=== PATIENT | female | born 1995 | race Caucasian/White ===

== ENCOUNTER 2018-02-26 14:10 | Emergency (ER) | payer OTHER ==
[~2018-02-26] VITALS: Ht 157.5 cm; Wt 69.0 kg
[2018-02-26 14:13] VITALS: BP 154/89
[2018-02-26] MEDS ORDERED: bacitracin 15gm ointment TP ONE (14:20)
[2018-02-26] MEDS ORDERED: LIDOcaine 1.5% w/epinephrine 1:200,000 5ml ampul IJ ONE (14:20)
[2018-02-26] MEDS ORDERED: LIDOcaine 1% w/epiNEPHrine 1:200,000 30ml vial IJ ONE (14:25)
[2018-02-26] MEDS ORDERED: CEPH-571 PO (14:42)
== END 2018-02-26 14:57 | disposition home or self-care (01) ==
LOC: ER 14:10
DX: S61.412A Laceration without foreign body of left hand, initial encounter (principal); Z79.2 Long term (current) use of antibiotics; W26.8XXA Contact with other sharp object(s), not elsewhere classified, initial encounter; Y93.89 Activity, other specified; Y92.89 Other specified places as the place of occurrence of the external cause; Y99.8 Other external cause status
CPT/HCPCS: 12002; 99283; J3490

== ENCOUNTER 2020-02-12 11:08 | Day surgery (SDC) | payer BC, MEDICAID ==
[2020-02-06 10:29] LABS: BASOPHILS % (AUTO) 0.8 % (0-1); EOSINOPHILS # (AUTO) 0.1 X10'3 (0-0.9); EOSINOPHILS % (AUTO) 1.9 % (0-6); LYMPHOCYTES # (AUTO) 1.8 X10'3 (1.1-4.8); LYMPHOCYTES % (AUTO) 32.1 % (21-51); MEAN CORPUSCULAR HEMOGLOBIN 29.2 PG (27.0-31.0); MEAN CORPUSCULAR HGB CONC 33.7 g/dL (33.0-36.5); MEAN CORPUSCULAR VOLUME 86.5 FL (78-98); MEAN PLATELET VOLUME 9.4 FL (7.4-10.4); MONOCYTES # (AUTO) 0.4 X10'3 (0-0.9); MONOCYTES % (AUTO) 6.8 % (2-12); NEUTROPHILS # (AUTO) 3.3 X10'3 (1.8-7.7); NEUTROPHILS % (AUTO) 58.4 % (42-75); PRE OP HEMOGLOBIN 14.2 g/dL (12.0-16.0); PRE OP PLATELET COUNT 272 X10'3 (140-440); RED BLOOD COUNT 4.85 X10'6 (4.20-5.60); RED CELL DISTRIBUTION WIDTH 12.5 % (11.5-14.5)
[2020-02-06 10:35] LABS: CLARITY,URINE SLIGHTLY CLOUDY (Clear); COLOR,URINE STRAW (Yellow); GLUCOSE, URINE NEGATIVE (Neg); KETONES,URINE NEGATIVE (Neg); LEUKOCYTE ESTERASE ,URINE NEGATIVE (Neg); NITRITES, URINE NEGATIVE (Neg); OCCULT BLOOD,URINE NEGATIVE (Neg); PROTEIN,URINE NEGATIVE (Neg); UROBILINOGEN,URINE 0.2 E.U/dL (0.2-1.0)
[2020-02-06 10:37] LABS: UA COLLECTION TYPE NON-SPECIFIED
[2020-02-06 10:49] LABS: ALBUMIN/GLOBULIN RATIO 1.1 (1.1-1.5); ALKALINE PHOSPHATASE 61 IU/L (46-116); BLOOD UREA NITROGEN 11 MG/DL (7-18); BUN/CREATININE RATIO 15.1 (6.6-38.0); CALCIUM 8.8 MG/DL (8.5-10.1); CHLORIDE 106 MMOL/L (99-107); CREATININE 0.73 MG/DL (0.40-0.90); PRE OP ALT 25 U/L (30-65); PRE OP ANION GAP 5 (8-16); PRE OP AST 16 U/L (10-37); PRE OP BILIRUB, TOTAL 0.4 MG/DL (0.0-1.0); PRE OP GLUCOSE 82 MG/DL (70-104); PRE OP POTASSIUM 3.9 MMOL/L (3.4-5.1); PRE OP SODIUM 140 MMOL/L (135-145); TOTAL CARBON DIOXIDE 29.5 MMOL/L (24-32); TOTAL PROTEIN 7.7 G/DL (6.4-8.2); eGFR > 90 ML/MIN
[2020-02-06 10:57] LABS: SQUAMOUS EPITHELIAL CELL,UR FEW /LPF (FEW)
[2020-02-06 10:58] LABS: BACTERIA,URINE FEW /HPF (Neg); RBC,URINE 0-2 /HPF (0-2); TRANSITIONAL EPI CELLS,URINE FEW /HPF; WBC,URINE 0-4 /HPF (0-4)
[2020-02-06 11:01] LABS: HCG SERUM QL NEGATIVE
[~2020-02-12] VITALS: Ht 157.5 cm; Wt 67.6 kg
[2020-02-12] VITALS (8 sets, daily range): BP systolic 103–123; BP diastolic 59–82
[~2020-02-12 11:08] MED LIST: NO HOME MEDS; ceFOXitin sod/dextrose 2g/50ml 50 ML IV ONE; famotidine 10mg tablet PO ONE; ringers solution, lacted 1,000 ML IV SCH
[2020-02-12] MEDS ORDERED: dextrose 5%-lactated ringers 1,000 ML IV SCH (13:10)
[2020-02-12] MEDS ORDERED: ringers solution, lacted 1,000 ML IV SCH (15:10)
[2020-02-12] MEDS ORDERED: ondansetron/PF 4mg/2ml inj IV PRN (15:10)
[2020-02-12] MEDS ORDERED: meperidine/PF 25mg/ml syringe IV PRN ×3 (15:10)
[2020-02-12] MEDS ORDERED: morphine 2 MG/ML inj. syringe IV PRN (15:10)
[2020-02-12] MEDS ORDERED: proCHLORperazine 10 MG/2 ml inj IV PRN (15:10)
[2020-02-12] MEDS ORDERED: morphine 4 MG/ML inj SYRINge IV PRN (15:10)
[2020-02-12] MEDS ORDERED: sevoflurane 250ml liquid IH ONE (17:02)
[2020-02-12] MEDS ORDERED: dexamethasone sod phosphate 10mg/ml inj ONE (17:02)
[2020-02-12] MEDS ORDERED: midazolam 2 mg/2 ml injection ONE (17:03)
[2020-02-12] MEDS ORDERED: fentaNYL/PF 50MCG/1 ML 2ML syringe ONE (17:03)
[2020-02-12] MEDS ORDERED: LIDOcaine 2% (20mg/ml) 5ml vial ONE (17:19)
[2020-02-12] MEDS ORDERED: propofol inj 20 ML IV ONE (17:19)
[2020-02-12] MEDS ORDERED: ondansetron/PF 4mg/2ml inj ONE (17:20)
[2020-02-12] MEDS ORDERED: ketorolac trometh. 30mg/ml inj. ONE (17:33)
--- NOTE | 2020-02-12 17:48 | NUR ---
Received from OR via , accompanied by Anesthesiologist DR ANGULO and report given by Anesthesiolgist. AWAKENS TO VOICE. VITALS STABLE. SHANNON PAD DI PETER PAIN.
--- NOTE | 2020-02-12 18:58 | NUR ---
AWAKE AND ORIENTED. VITALS STABLE. SHANNON PAD DI. STATES ONLY MIN PAIN. HOME WITH A FRIEND AT THIS TIME.
== END 2020-02-12 18:58 | disposition home or self-care (01) ==
LOC: PAS 11:08
PROVIDERS: ATTEND Obstetrics & Gynecology Obstetrics
DX: N85.8 Other specified noninflammatory disorders of uterus (principal); N84.0 Polyp of corpus uteri; Z98.890 Other specified postprocedural states; Z79.899 Other long term (current) drug therapy; Z20.828 Contact with and (suspected) exposure to other viral communicable diseases
CPT/HCPCS: 36415; 58558; 80053; 81001; 82948; 84703; 85025; 86885; 86900; 86901; 87635; J0694; J1100; J1885; J2001; J2175; J2250; J2405; J2704; J3010; J7030; J7121; A4355; A4618; A7000; J7120

== ENCOUNTER 2020-09-05 09:04 | Emergency (ER) | payer MEDICAID ==
[~2020-09-05] VITALS: Ht 157.5 cm; Wt 71.8 kg
[~2020-09-05 09:04] MED LIST changes: -ceFOXitin sod/dextrose 2g/50ml 50 ML IV ONE; -famotidine 10mg tablet PO ONE; -ringers solution, lacted 1,000 ML IV SCH
[2020-09-05 09:19] VITALS: BP 112/82
[2020-09-05 09:58] LABS: CLARITY,URINE SLIGHTLY CLOUDY (Clear); COLOR,URINE YELLOW (Yellow); GLUCOSE, URINE NEGATIVE (Neg); KETONES,URINE NEGATIVE (Neg); LEUKOCYTE ESTERASE ,URINE SMALL (Neg); NITRITES, URINE NEGATIVE (Neg); OCCULT BLOOD,URINE TRACE-INTACT (Neg); PH,URINE 6.5 (4.8-8.0); PROTEIN,URINE NEGATIVE (Neg); UA COLLECTION TYPE CLN CATCH MIDSTREAM; UROBILINOGEN,URINE 0.2 E.U/dL (0.2-1.0)
[2020-09-05 09:59] LABS: URINE HCG POSITIVE (NEG)
[2020-09-05 10:02] LABS: BASOPHILS % (AUTO) 0.3 % (0-1); EOSINOPHILS # (AUTO) 0.1 X10'3 (0-0.9); EOSINOPHILS % (AUTO) 0.8 % (0-6); HEMATOCRIT 38.3 % (35.0-45.0); HEMOGLOBIN 13.1 g/dl (12.0-16.0); LYMPHOCYTES # (AUTO) 1.4 X10'3 (1.1-4.8); LYMPHOCYTES % (AUTO) 20.4 % (21-51); MEAN CORPUSCULAR HEMOGLOBIN 29.6 PG (27.0-31.0); MEAN CORPUSCULAR HGB CONC 34.2 g/dL (33.0-36.5); MEAN CORPUSCULAR VOLUME 86.6 FL (78-98); MEAN PLATELET VOLUME 8.9 FL (7.4-10.4); MONOCYTES # (AUTO) 0.5 X10'3 (0-0.9); MONOCYTES % (AUTO) 6.9 % (2-12); NEUTROPHILS % (AUTO) 71.6 % (42-75); PLATELET COUNT 230 X10'3 (140-440); RED BLOOD COUNT 4.42 X10'6 (4.20-5.60); RED CELL DISTRIBUTION WIDTH 12.6 % (11.5-14.5)
[2020-09-05 10:08] LABS: MUCUS STRANDS FEW /LPF (Neg); SQUAMOUS EPITHELIAL CELL,UR MODERATE /LPF (FEW)
[2020-09-05 10:10] LABS: ALANINE AMINOTRANSFERASE 22 U/L (12-78); ALBUMIN 3.4 G/DL (3.4-5.0); ALBUMIN/GLOBULIN RATIO 0.9 (1.1-1.5); ALKALINE PHOSPHATASE 53 IU/L (46-116); ANION GAP 9 (8-16); ASPARTATE AMINO TRANSFERASE 18 U/L (10-37); BILIRUBIN,TOTAL 0.3 MG/DL (0.1-1.0); BLOOD UREA NITROGEN 10 MG/DL (7-18); BUN/CREATININE RATIO 17.5 (6.6-38.0); CALCIUM 8.8 MG/DL (8.5-10.1); CHLORIDE 104 MMOL/L (99-107); CREATININE 0.57 MG/DL (0.40-0.90); GLUCOSE 86 MG/DL (70-104); POTASSIUM 4.3 MMOL/L (3.5-5.1); SODIUM 137 MMOL/L (135-145); TOTAL CARBON DIOXIDE 24.2 MMOL/L (24-32); TOTAL PROTEIN 7.3 G/DL (6.4-8.2); eGFR > 90 ML/MIN
[2020-09-05 10:17] LABS: RBC,URINE 0-2 /HPF (0-2); STARCH,URINE MODERATE /HPF (NEGATIVE); WBC,URINE 0-4 /HPF (0-4)
[2020-09-05 10:18] LABS: BACTERIA,URINE 1+ /HPF (Neg)
[2020-09-05 10:37] LABS: BETA HCG,QUANTITATIVE 93904 mIU/ml
== END 2020-09-05 12:17 | disposition home or self-care (01) ==
LOC: ER 09:04
DX: O20.0 Threatened abortion (principal); Z3A.10 10 weeks gestation of pregnancy
CPT/HCPCS: 36415; 76801; 80053; 81001; 81025; 84702; 85025; 87088; 93976; 99284

== ENCOUNTER 2020-10-31 15:35 | Emergency (ER) | payer MEDICAID ==
[~2020-10-31] VITALS: Ht 157.5 cm; Wt 73.2 kg
[2020-10-31 15:47] VITALS: BP 123/80
--- NOTE | 2020-10-31 16:37 | NUR ---
DR CROOK AND RUFUS VALENTE AT BEDSIDE, DOING U/S EXAM. THEY REPORT FHR OF 128, NORMAL MOVEMENT. PT DENIES VAG BLEEDING
== END 2020-10-31 17:29 | disposition home or self-care (01) ==
LOC: ER 15:36
DX: O26.892 Other specified pregnancy related conditions, second trimester (principal); R10.84 Generalized abdominal pain; Z3A.18 18 weeks gestation of pregnancy
CPT/HCPCS: 76815; 99284